=== PATIENT | female | born 1990 | race Caucasian/White ===

== ENCOUNTER 2024-09-22 09:20 | Emergency (ER) | payer SELFPAY ==
[~2024-09-22] VITALS: Ht 160 cm; Wt 75.3 kg
[~2024-09-22 09:20] MED LIST: BUSP10TA PO; CITA20TA9 PO; ZOLP10TA PO
[2024-09-22 09:33] VITALS: BP 151/104; PULSE 75; RESP 16; TEMP 98.2; O2SAT 100
[2024-09-22] MEDS ORDERED: TORADOL ONE (09:41)
[2024-09-22] MEDS: TORADOL IM STA (09:43)
[2024-09-22 09:48] VITALS: BP 125/79; PULSE 83; RESP 16; O2SAT 98
== END 2024-09-22 09:48 | disposition home or self-care (01) ==
LOC: ER 09:20
DX: R07.1 Chest pain on breathing (principal); I10 Essential (primary) hypertension; F12.90 Cannabis use, unspecified, uncomplicated; Z90.49 Acquired absence of other specified parts of digestive tract; Z88.5 Allergy status to narcotic agent
CPT/HCPCS: 99283; 96372; J1885